=== PATIENT | male | born 1965 | race Caucasian/White ===

== ENCOUNTER 2018-09-02 09:57 | Observation (INO) ==
[2018-09-02] MEDS ORDERED: cefTRIAXone 1,000 MG in SODIUM CHLORIDE 0.9% 100 ML IV STA (10:12)
[2018-09-02] MEDS ORDERED: KETOROLAC 30 MG/1 ML VIAL IV STA (10:14)
[2018-09-02] MEDS ORDERED: cefTRIAXone 1,000 MG in SYRINGE 1 EACH IV STA (10:17)
[2018-09-02 11:07] LABS: Basophils % 0.2 % (0.0-0.8); Eosinophils # 0.1 10*3/uL (0.0-0.87); Eosinophils % 1.2 % (0.00-10.9); Hematocrit 40.7 VOL% (42.0-52.0); Hemoglobin 13.5 GM/DL (14.0-18.0); Immature Granulocytes % 0.3 %; Immature Granulocytes Absolute 0.04 #; Lymphocytes # 1.3 10*3/uL (1.4-4.0); Lymphocytes % 10.7 % (21.2-54.2); Mean Corpuscular HGB Conc 33.2 GM/DL (32-36); Mean Corpuscular Volume 91.7 FL (87-102); Mean Platelet Volume 8.9 FL (9.6-12.0); Monocytes % 8.6 % (1.7-12.7); Platelet Count 299 T/CUMM (130-400); Red Blood Count 4.44 MC/CUMM (3.8-5.5); White Blood Count 12.1 T/CUMM (4-12)
[2018-09-02 12:05] LABS: Apearance,Urine Slightly Hazy (Clear); Bilirubin,Urine Negative (Negative); Blood, Urine Negative (Negative); Glucose,Urine (UA) Negative (Negative); Granular Casts,Urine 1 /LPF (0-1); Ketones,Urine Negative (Negative); Mucus,Urine Moderate /LPF (Occasional); Nitrite,Urine Negative (Negative); Protein,Urine Negative; RBC,Urine <1 /HPF (0-4); Squamous Epithelial Cell,Urine Occasional /HPF (0-10); Urine Color Yellow (Yellow); Urine Specific Gravity 1.021 (1.001-1.035); Urine Urobilinogen < 2.0 EU/DL (0.2-1.0); WBC,Urine <1 /HPF (0-6)
[2018-09-02 12:09] LABS: Sedimentation Rate-Westergren 80 MM/HR (0-20)
[2018-09-02 12:13] LABS: Albumin 3.3 G/DL (3.4-5.0); Bilirubin,Total 0.7 MG/DL (0.2-1.0); Calcium 9.3 MG/DL (8.5-10.1); Osmolality,Calculated 280.3 MOS/KG (273-304); Total Protein 7.3 G/DL (6.4-8.3)
[2018-09-02] MEDS ORDERED: HYDROmorphone 2 MG/1 ML VIAL IV PRN (13:09)
[2018-09-02] MEDS ORDERED: ACETAMINOPHEN 325 MG TABLET PO PRN (13:09)
[2018-09-02] MEDS ORDERED: ONDANSETRON 4 MG/2 ML VIAL IV PRN (13:09)
[2018-09-02] MEDS ORDERED: ENOXAPARIN 40 MG/0.4 ML SYRINGE SUBCUT SCH (14:00)
[2018-09-02] MEDS: SODIUM CHLORIDE 0.9% 1,000 ML IV SCH ×2 (15:25→21:36)
[2018-09-02] MEDS: methylPREDNISolone SOD SUC 40 MG/1 ML VIAL IV SCH ×2 (15:25→21:34)
[2018-09-02] MEDS ORDERED: KETOROLAC 30 MG/1 ML VIAL IV PRN (18:00)
[2018-09-02] MEDS: DOXYCYCLINE HYCLATE 100 MG CAPSULE PO SCH (21:34)
[2018-09-02] MEDS: DOCUSATE SODIUM 100 MG CAPSULE PO SCH (21:34)
[2018-09-03 04:30] LABS: Basophils % 0.1 % (0.0-0.8); Hemoglobin 12.7 GM/DL (14.0-18.0); Immature Granulocytes % 0.6 %; Immature Granulocytes Absolute 0.06 #; Lymphocytes # 0.7 10*3/uL (1.4-4.0); Lymphocytes % 6.8 % (21.2-54.2); Mean Corpuscular HGB Conc 32.6 GM/DL (32-36); Mean Corpuscular Volume 92.4 FL (87-102); Mean Platelet Volume 8.9 FL (9.6-12.0); Neutrophils % 90.5 % (38.7-73.9); Platelet Count 315 T/CUMM (130-400); Red Blood Count 4.22 MC/CUMM (3.8-5.5); Red Cell Distribution Width 11.7 % (9.3-17.3); White Blood Count 9.7 T/CUMM (4-12)
[2018-09-03] MEDS: methylPREDNISolone SOD SUC 40 MG/1 ML VIAL IV SCH (06:35)
[2018-09-03] MEDS: SODIUM CHLORIDE 0.9% 1,000 ML IV SCH (06:35)
[2018-09-03 08:06] VITALS: BP 141/74
[2018-09-03] MEDS ORDERED: PANTOPRAZOLE 40 MG TABLET PO SCH (09:00)
[2018-09-03] MEDS: DOCUSATE SODIUM 100 MG CAPSULE PO SCH (10:17)
[2018-09-03] MEDS: DOXYCYCLINE HYCLATE 100 MG CAPSULE PO SCH (10:18)
[2018-09-03] MEDS ORDERED: cefTRIAXone 1,000 MG in SYRINGE 1 EACH IV SCH (12:00)
[2018-09-03 22:47] LABS: Ehrlichia Chaffeensis (HME)IgG <1:64 titer (<1:64)
[2018-09-06 05:26] LABS: Ehrlichia Chaffeensis (HME)IgG <1:64 titer (<1:64)
== END 2018-09-03 09:30 | disposition home or self-care (01) ==
LOC: N.EDINP 09:57 → N.ED 09:57 → N.2E 15:38
PROVIDERS: ADMIT Family Medicine; ATTEND Family Medicine